=== PATIENT | female | born 1940 | race African-American/Black ===

== ENCOUNTER 2018-01-23 18:19 | Inpatient (IN) ==
[2018-01-23] MEDS ORDERED: SODIUM CHLORIDE 0.9% 500 ML IV STA (18:27)
[2018-01-23] MEDS ORDERED: CLINDAMYCIN INJ 600 MG in PREMIX 1 EACH IV STA (18:27)
[2018-01-23] MEDS ORDERED: methylPREDNISolone SOD SUC 125 MG/2 ML VIAL IV STA (18:27)
[2018-01-23] MEDS ORDERED: ONDANSETRON 4 MG/2 ML VIAL IV STA (18:27)
[2018-01-23] MEDS ORDERED: PANTOPRAZOLE 40 MG VIAL IV STA (18:27)
[2018-01-23] MEDS ORDERED: SODIUM BICARBONATE 50 MEQ/50 ML VIAL IV STA ×2 (18:35→18:42)
[2018-01-23 18:41] LABS: ABG Base Excess -11.8 MMOL/L (-2.5-2.5); ABG HCO3 19.1 MMOL/L (20-26); ABG Oxygen Saturation 97.5 % (95-100); ABG PO2 145.9 MM HG (80-95); ABG TCO2 21.2 MMOL/L (23-27)
[2018-01-23 18:42] LABS: ABG PCO2 69.9 MM HG (35-48); ABG PH 7.054 (7.35-7.45)
[2018-01-23 18:46] LABS: Basophils % 0.4 % (0.0-0.8); Eosinophils # 0.1 10*3/uL (0.0-0.87); Eosinophils % 1.3 % (0.00-10.9); Hematocrit 37.6 VOL% (35.7-47.0); Hemoglobin 11.2 GM/DL (12.0-16.0); Immature Granulocytes Absolute 0.08 #; Lymphocytes # 4.8 10*3/uL (1.4-4.0); Lymphocytes % 62.3 % (21.3-54.2); Mean Corpuscular HGB Conc 29.8 GM/DL (32-36); Mean Corpuscular Hemoglobin 30 PG (27-34); Mean Corpuscular Volume 100.8 FL (87-102); Mean Platelet Volume 11.5 FL (9.6-12.0); Monocytes # 0.5 10*3/uL (0.11-0.8); Monocytes % 5.8 % (1.7-12.7); NRBC # 0.02 10*3/uL; Neutrophils # 2.3 10*3/uL (1.4-7.4); Neutrophils % 29.2 % (38.7-73.9); Platelet Count 80 T/CUMM (130-400); Red Blood Count 3.73 MC/CUMM (3.8-5.5); Red Cell Distribution Width 13.9 % (9.3-17.3); White Blood Count 7.7 T/CUMM (4-12)
[2018-01-23 18:47] LABS: INR 1.1; PT Patient Result 11.5 SECS
[2018-01-23 18:59] LABS: Alanine Aminotransferase 69 U/L (13-56); Albumin 3.2 G/DL (3.4-5.0); Alkaline Phosphatase 89 U/L (45-117); Aspartate Amino Transferase 91 U/L (0-37); Blood Urea Nitrogen 27 MG/DL (7-18); Calcium 9.3 MG/DL (8.5-10.1); Glucose 221 MG/DL (74-106); Osmolality,Calculated 292.3 MOS/KG (273-304); Potassium 4.7 MMOL/L (3.5-5.1); Sodium 141 MMOL/L (136-145); Total Protein 7.7 G/DL (6.4-8.3)
[2018-01-23 19:00] LABS: Troponin I 0.243 NG/ML (0.00-0.045)
[2018-01-23 19:09] LABS: Apearance,Urine CLEAR (Clear); Bilirubin,Urine Negative (Negative); Blood, Urine Negative (Negative); Glucose,Urine (UA) Negative (Negative); Hyaline Casts,Urine 1 /LPF (0-3); Ketones,Urine Negative (Negative); Mucus,Urine Occasional /LPF (Occasional); Nitrite,Urine Negative (Negative); Protein,Urine Negative; RBC,Urine 3 /HPF (0-4); Urine Color Yellow (Yellow); Urine Specific Gravity 1.014 (1.001-1.035); Urine Urobilinogen < 2.0 EU/DL (0.2-1.0); WBC,Urine 1 /HPF (0-6)
[2018-01-23] MEDS ORDERED: PIPERACILLIN/TAZOBACTAM 3,375 MG in SODIUM CHLORIDE 0.9% 100 ML IV STA (19:38)
[2018-01-23 19:47] LABS: Platelet Estimate Decreased
[2018-01-23 19:48] LABS: Anisocytosis Slight
[2018-01-23 20:14] LABS: Lactic Acid 8.1 MMOL/L (0.4-2.0)
[2018-01-23] MEDS ORDERED: ONDANSETRON 4 MG/2 ML VIAL IV PRN (21:14)
[2018-01-23] MEDS ORDERED: ACETAMINOPHEN 325 MG TABLET PO PRN (21:14)
[2018-01-23] MEDS ORDERED: ENOXAPARIN 40 MG/0.4 ML SYRINGE SUBCUT SCH (21:14)
[2018-01-23] MEDS ORDERED: MORPHINE 4 MG/1 ML VIAL IV PRN (21:14)
[2018-01-23] MEDS: SODIUM CHLORIDE 0.9% 1,000 ML IV SCH (21:45)
[2018-01-23] MEDS: DOCUSATE SODIUM 100 MG CAPSULE PO SCH (22:07)
[2018-01-23] MEDS ORDERED: PHENYTOIN INJ 1,000 MG in SODIUM CHLORIDE 0.9% 100 ML IV ONE (22:30)
[2018-01-23] MEDS ORDERED: NOREPINEPHRINE 4 MG/4 ML VIAL IV ONE (22:33)
[2018-01-23] MEDS ORDERED: NOREPINEPHRINE 8 MG in SODIUM CHLORIDE 0.9% 242 ML IV PRN (22:40)
[2018-01-23] MEDS ORDERED: fentaNYL INJ 1,250 MCG in SODIUM CHLORIDE 0.9% 225 ML IV PRN (22:55)
[2018-01-23 23:12] LABS: CKMB % 5.7 %
[2018-01-23] MEDS ORDERED: SODIUM CHLORIDE 0.9% 1,000 ML IV ONE (23:15)
[2018-01-23 23:22] LABS: Troponin I 3.66 NG/ML (0.00-0.045)
[2018-01-23] MEDS: CISATRACURIUM 200 MG in SODIUM CHLORIDE 0.9% 180 ML IV SCH (23:25)
[2018-01-23] MEDS: PROPOFOL 1,000 MG/100 ML BOTTLE IV SCH (23:25)
[2018-01-24] MEDS ORDERED: SODIUM CHLORIDE 0.9% 1,000 ML IV ONE ×3 (00:15→02:15)
[2018-01-24 02:46] LABS: INR 1.9; PT Patient Result 19.2 SECS
[2018-01-24 02:49] LABS: Calcium 7.5 MG/DL (8.5-10.1); Partial Thromboplastin Time 65.7 SECS (0-40); Potassium 3.6 MMOL/L (3.5-5.1)
[2018-01-24 02:53] LABS: CKMB % 6.3 %
[2018-01-24] MEDS ORDERED: NOREPINEPHRINE 4 MG/4 ML VIAL IV ONE (03:05)
[2018-01-24 03:12] LABS: Lactic Acid 14.4 MMOL/L (0.4-2.0)
[2018-01-24] MEDS: NOREPINEPHRINE 16 MG in SODIUM CHLORIDE 0.9% 234 ML IV PRN ×3 (03:12→17:08)
[2018-01-24 03:14] LABS: Troponin I 5.58 NG/ML (0.00-0.045)
[2018-01-24] MEDS: INSULIN REGULAR 100 UNIT/ML IV SCH ×5 (03:46→20:52)
[2018-01-24 05:14] LABS: Basophils % 0.1 % (0.0-0.8); Hematocrit 21.2 VOL% (35.7-47.0); Immature Granulocytes % 0.4 %; Immature Granulocytes Absolute 0.06 #; Lymphocytes # 0.5 10*3/uL (1.4-4.0); Lymphocytes % 3.1 % (21.3-54.2); Mean Corpuscular HGB Conc 28.8 GM/DL (32-36); Mean Corpuscular Hemoglobin 30 PG (27-34); Mean Corpuscular Volume 104.4 FL (87-102); Mean Platelet Volume 10.9 FL (9.6-12.0); Monocytes # 0.4 10*3/uL (0.11-0.8); Monocytes % 2.7 % (1.7-12.7); Neutrophils # 13.8 10*3/uL (1.4-7.4); Neutrophils % 93.7 % (38.7-73.9); Platelet Count 73 T/CUMM (130-400); Red Blood Count 2.03 MC/CUMM (3.8-5.5); Red Cell Distribution Width 13.8 % (9.3-17.3); White Blood Count 14.7 T/CUMM (4-12)
[2018-01-24 05:23] LABS: ABG Base Excess -21.9 MMOL/L (-2.5-2.5); ABG PCO2 24.7 MM HG (35-48); ABG TCO2 6.9 MMOL/L (23-27)
[2018-01-24] MEDS: PIPERACILLIN/TAZOBACTAM 3,375 MG in SODIUM CHLORIDE 0.9% 100 ML IV SCH ×3 (05:25→20:25)
[2018-01-24 05:26] LABS: ABG PH 7.053 (7.35-7.45)
[2018-01-24 05:28] LABS: Hemoglobin 6.1 GM/DL (12.0-16.0)
[2018-01-24 05:34] LABS: Acanthocytes Few; Band Neutrophils 7 % (0-10); Hypochromasia 1+; Lymphocytes 1 % (20-55); Platelet Estimate Decreased; Segmented Neutrophils 90 % (50-85); Total Cells Counted 100
[2018-01-24] MEDS ORDERED: SODIUM BICARBONATE 50 MEQ/50 ML SYRINGE IV ONE ×3 (05:34→05:35)
[2018-01-24 05:35] LABS: Ovalocytes Slight
[2018-01-24 05:42] LABS: Albumin 1.9 G/DL (3.4-5.0); Bilirubin,Total 0.5 MG/DL (0.2-1.0); Calcium 7.5 MG/DL (8.5-10.1); Osmolality,Calculated 306.1 MOS/KG (273-304); Potassium 3.6 MMOL/L (3.5-5.1); Total Protein 4.5 G/DL (6.4-8.3)
[2018-01-24] MEDS: SODIUM CHLORIDE 0.9% 1,000 ML IV SCH (05:47)
[2018-01-24] MEDS: SODIUM CHLORIDE 23.4% CONC INJ 38.5 MEQ, SODIUM BICARB INJ 100 MEQ in STERILE WATER INJ... IV SCH ×2 (05:55→17:09)
[2018-01-24] MEDS: PHENYTOIN 100 MG/2 ML VIAL IV SCH ×3 (06:15→22:51)
[2018-01-24] MEDS ORDERED: POTASSIUM CHLORIDE RIDER 100 ML IV ONE (06:41)
[2018-01-24] MEDS ORDERED: POTASSIUM CHLORIDE RIDER 20 MEQ in PREMIX 1 EACH IV ONE (06:43)
[2018-01-24 08:26] LABS: ABG Base Excess -21.7 MMOL/L (-2.5-2.5); ABG HCO3 8.5 MMOL/L (20-26); ABG Oxygen Saturation 99.4 % (95-100); ABG PCO2 21.6 MM HG (35-48); ABG TCO2 6.6 MMOL/L (23-27)
[2018-01-24 08:30] LABS: Basophils % 0.1 % (0.0-0.8); Hematocrit 25.6 VOL% (35.7-47.0); Hemoglobin 7.5 GM/DL (12.0-16.0); Immature Granulocytes % 0.6 %; Immature Granulocytes Absolute 0.09 #; Lymphocytes # 0.5 10*3/uL (1.4-4.0); Lymphocytes % 3.3 % (21.3-54.2); Mean Corpuscular HGB Conc 29.3 GM/DL (32-36); Mean Corpuscular Hemoglobin 29 PG (27-34); Mean Corpuscular Volume 100.4 FL (87-102); Mean Platelet Volume 11.1 FL (9.6-12.0); Monocytes # 0.5 10*3/uL (0.11-0.8); Monocytes % 3.3 % (1.7-12.7); Neutrophils # 14.7 10*3/uL (1.4-7.4); Neutrophils % 92.7 % (38.7-73.9); Platelet Count 69 T/CUMM (130-400); Red Blood Count 2.55 MC/CUMM (3.8-5.5); Red Cell Distribution Width 14.8 % (9.3-17.3); White Blood Count 15.9 T/CUMM (4-12)
[2018-01-24 08:52] LABS: Band Neutrophils 9 % (0-10); Burr Cells Slight; Hypochromasia 1+; Lymphocytes 3 % (20-55); Ovalocytes Slight; Platelet Estimate Decreased; Segmented Neutrophils 86 % (50-85); Total Cells Counted 100
[2018-01-24 08:53] LABS: PT Patient Result 20.9 SECS
[2018-01-24 08:55] LABS: Partial Thromboplastin Time 66.2 SECS (0-40)
[2018-01-24] MEDS ORDERED: CHLORTHALIDONE 25 MG TABLET PO SCH (09:00)
[2018-01-24] MEDS ORDERED: IRBESARTAN 150 MG TABLET PO SCH (09:00)
[2018-01-24] MEDS ORDERED: amLODIPine 5 MG TABLET PO SCH (09:00)
[2018-01-24] MEDS ORDERED: NON-FORMULARY MEDICATION (Omeprazole [Omeprazole] 20 MG) PO SCH (09:00)
[2018-01-24 09:01] LABS: CKMB % 6.1 %
[2018-01-24 09:04] LABS: Troponin I 6.18 NG/ML (0.00-0.045)
[2018-01-24 09:07] LABS: Calcium 7.3 MG/DL (8.5-10.1); Osmolality,Calculated 309.7 MOS/KG (273-304); Potassium 4.8 MMOL/L (3.5-5.1)
[2018-01-24 09:08] LABS: Lactic Acid 19.5 MMOL/L (0.4-2.0)
[2018-01-24] MEDS ORDERED: INSULIN REGULAR 100 UNIT/ML IV SCH (12:00)
[2018-01-24 12:11] LABS: Basophils % 0.2 % (0.0-0.8); Hematocrit 39.1 VOL% (35.7-47.0); Immature Granulocytes % 0.4 %; Immature Granulocytes Absolute 0.08 #; Lymphocytes # 0.6 10*3/uL (1.4-4.0); Lymphocytes % 3.3 % (21.3-54.2); Mean Corpuscular HGB Conc 30.2 GM/DL (32-36); Mean Corpuscular Hemoglobin 30 PG (27-34); Mean Corpuscular Volume 97.8 FL (87-102); Mean Platelet Volume 11.3 FL (9.6-12.0); Monocytes # 0.6 10*3/uL (0.11-0.8); Monocytes % 3.1 % (1.7-12.7); Neutrophils # 17.6 10*3/uL (1.4-7.4); Platelet Count 65 T/CUMM (130-400); Red Cell Distribution Width 14.6 % (9.3-17.3); White Blood Count 18.9 T/CUMM (4-12)
[2018-01-24] MEDS: PHENYLEPHRINE DRIP 40 MG/250 ML PREMIX IV PRN (12:12)
[2018-01-24 12:14] LABS: Hemoglobin 11.8 GM/DL (12.0-16.0)
[2018-01-24] MEDS: DOCUSATE SODIUM 100 MG CAPSULE PO SCH ×2 (12:45→21:56)
[2018-01-24] MEDS: ATORVASTATIN 20 MG TABLET PO SCH (12:45)
[2018-01-24] MEDS: PANTOPRAZOLE 40 MG VIAL IV SCH (12:45)
[2018-01-24 13:45] LABS: Band Neutrophils 16 % (0-10); Lymphocytes 5 % (20-55); Macrocytosis Slight; Platelet Estimate Decreased; Segmented Neutrophils 76 % (50-85); Total Cells Counted 100
[2018-01-24 14:29] LABS: CKMB % 5.9 %
[2018-01-24 14:34] LABS: Calcium 7.6 MG/DL (8.5-10.1); Osmolality,Calculated 309.9 MOS/KG (273-304); Potassium 4.7 MMOL/L (3.5-5.1)
[2018-01-24 14:48] LABS: Lactic Acid 18.9 MMOL/L (0.4-2.0); Troponin I 6.04 NG/ML (0.00-0.045)
[2018-01-24] MEDS: POTASSIUM CHLORIDE 10 MEQ TABLET PO SCH (14:50)
[2018-01-24 14:55] LABS: INR 1.9; PT Patient Result 19.5 SECS
[2018-01-24 14:56] LABS: Partial Thromboplastin Time 46.4 SECS (0-40)
[2018-01-24] MEDS: MINERAL OIL/PETROLATUM OPH OINT 3.5 GM TUBE BOTH EYES SCH ×2 (15:04→21:56)
[2018-01-24] MEDS: ASPIRIN EC 81 MG TABLET PO SCH (15:04)
[2018-01-24 20:12] LABS: Basophils % 0.2 % (0.0-0.8); Hematocrit 38.4 VOL% (35.7-47.0); Immature Granulocytes % 0.4 %; Lymphocytes # 1.3 10*3/uL (1.4-4.0); Lymphocytes % 5.8 % (21.3-54.2); Mean Corpuscular HGB Conc 31.3 GM/DL (32-36); Mean Corpuscular Hemoglobin 30 PG (27-34); Mean Corpuscular Volume 95.3 FL (87-102); Mean Platelet Volume 11.8 FL (9.6-12.0); Monocytes # 0.5 10*3/uL (0.11-0.8); Monocytes % 2.4 % (1.7-12.7); Neutrophils # 20.5 10*3/uL (1.4-7.4); Neutrophils % 91.2 % (38.7-73.9); Platelet Count 48 T/CUMM (130-400); Red Blood Count 4.03 MC/CUMM (3.8-5.5); Red Cell Distribution Width 15.3 % (9.3-17.3); White Blood Count 22.5 T/CUMM (4-12)
[2018-01-24 20:29] LABS: PT Patient Result 20.2 SECS; Partial Thromboplastin Time 46.2 SECS (0-40)
[2018-01-24 20:32] LABS: Calcium 7.3 MG/DL (8.5-10.1); Osmolality,Calculated 307.1 MOS/KG (273-304); Potassium 4.7 MMOL/L (3.5-5.1)
[2018-01-24 20:38] LABS: CKMB % 6.2 %
[2018-01-24 20:39] LABS: Band Neutrophils 13 % (0-10); Lymphocytes 11 % (20-55); Segmented Neutrophils 72 % (50-85); Total Cells Counted 100
[2018-01-24 20:40] LABS: Platelet Estimate Decreased; Troponin I 4.72 NG/ML (0.00-0.045)
[2018-01-24 20:41] LABS: Macrocytosis Slight
[2018-01-25] MEDS: CISATRACURIUM 200 MG in SODIUM CHLORIDE 0.9% 180 ML IV SCH ×4 (00:09→22:13)
[2018-01-25] MEDS: NOREPINEPHRINE 16 MG in SODIUM CHLORIDE 0.9% 234 ML IV PRN ×3 (00:10→19:10)
[2018-01-25] MEDS: PROPOFOL 1,000 MG/100 ML BOTTLE IV SCH (00:11)
[2018-01-25] MEDS: INSULIN REGULAR 100 UNIT/ML IV SCH ×6 (01:26→20:46)
[2018-01-25] MEDS: PHENYLEPHRINE DRIP 40 MG/250 ML PREMIX IV PRN ×2 (02:20→20:22)
[2018-01-25 02:21] LABS: Basophils # 0.1 10*3/uL (0.0-0.2); Basophils % 0.2 % (0.0-0.8); Hematocrit 35.5 VOL% (35.7-47.0); Hemoglobin 11.5 GM/DL (12.0-16.0); Immature Granulocytes % 0.6 %; Immature Granulocytes Absolute 0.15 #; Lymphocytes # 2.2 10*3/uL (1.4-4.0); Lymphocytes % 9.1 % (21.3-54.2); Mean Corpuscular HGB Conc 32.4 GM/DL (32-36); Mean Corpuscular Hemoglobin 30 PG (27-34); Mean Corpuscular Volume 92.4 FL (87-102); Mean Platelet Volume 12.6 FL (9.6-12.0); Monocytes # 0.6 10*3/uL (0.11-0.8); Monocytes % 2.7 % (1.7-12.7); Neutrophils # 20.9 10*3/uL (1.4-7.4); Neutrophils % 87.4 % (38.7-73.9); Platelet Count 47 T/CUMM (130-400); Red Blood Count 3.84 MC/CUMM (3.8-5.5); Red Cell Distribution Width 15.4 % (9.3-17.3)
[2018-01-25 02:28] LABS: INR 2.1
[2018-01-25 02:30] LABS: PT Patient Result 21.4 SECS; Partial Thromboplastin Time 45.6 SECS (0-40)
[2018-01-25 02:38] LABS: Calcium 7.2 MG/DL (8.5-10.1); Osmolality,Calculated 309.1 MOS/KG (273-304)
[2018-01-25 02:43] LABS: Lactic Acid 14.8 MMOL/L (0.4-2.0)
[2018-01-25 04:00] LABS: Band Neutrophils 4 % (0-10); Lymphocytes 6 % (20-55); Polychromasia Few; Segmented Neutrophils 86 % (50-85); Total Cells Counted 100
[2018-01-25 04:01] LABS: Platelet Estimate Decreased
[2018-01-25] MEDS: SODIUM CHLORIDE 23.4% CONC INJ 38.5 MEQ, SODIUM BICARB INJ 100 MEQ in STERILE WATER INJ... IV SCH ×2 (04:20→17:55)
[2018-01-25] MEDS: PIPERACILLIN/TAZOBACTAM 3,375 MG in SODIUM CHLORIDE 0.9% 100 ML IV SCH ×2 (04:20→17:02)
[2018-01-25 04:59] LABS: ABG Base Excess -12.7 MMOL/L (-2.5-2.5); ABG HCO3 14.6 MMOL/L (20-26); ABG PCO2 22.8 MM HG (35-48); ABG PH 7.325 (7.35-7.45); ABG TCO2 10.7 MMOL/L (23-27)
[2018-01-25 05:24] LABS: Bilirubin,Total 0.9 MG/DL (0.2-1.0); Calcium 7.1 MG/DL (8.5-10.1); Osmolality,Calculated 307.3 MOS/KG (273-304); Total Protein 4.8 G/DL (6.4-8.3)
[2018-01-25] MEDS: PHENYTOIN 100 MG/2 ML VIAL IV SCH ×3 (06:30→21:12)
[2018-01-25 09:17] LABS: Basophils # 0.1 10*3/uL (0.0-0.2); Basophils % 0.2 % (0.0-0.8); Hematocrit 33.4 VOL% (35.7-47.0); Hemoglobin 11.2 GM/DL (12.0-16.0); Immature Granulocytes % 0.9 %; Immature Granulocytes Absolute 0.22 #; Lymphocytes # 2.1 10*3/uL (1.4-4.0); Lymphocytes % 8.3 % (21.3-54.2); Mean Corpuscular HGB Conc 33.5 GM/DL (32-36); Mean Corpuscular Hemoglobin 30 PG (27-34); Mean Corpuscular Volume 89.1 FL (87-102); Monocytes # 0.8 10*3/uL (0.11-0.8); Neutrophils # 22.2 10*3/uL (1.4-7.4); Neutrophils % 87.6 % (38.7-73.9); Red Blood Count 3.75 MC/CUMM (3.8-5.5); Red Cell Distribution Width 15.6 % (9.3-17.3); White Blood Count 25.3 T/CUMM (4-12)
[2018-01-25 09:18] LABS: Platelet Count 47 T/CUMM (130-400)
[2018-01-25 09:31] LABS: INR 2.1; PT Patient Result 21.9 SECS; Partial Thromboplastin Time 45.4 SECS (0-40)
[2018-01-25 09:36] LABS: Band Neutrophils 9 % (0-10); Hypochromasia 1+; Lymphocytes 8 % (20-55); Platelet Estimate Decreased; Segmented Neutrophils 82 % (50-85); Total Cells Counted 100
[2018-01-25 09:55] LABS: Osmolality,Calculated 304.6 MOS/KG (273-304); Potassium 5.2 MMOL/L (3.5-5.1)
[2018-01-25 10:00] LABS: Lactic Acid 12.1 MMOL/L (0.4-2.0)
[2018-01-25] MEDS: PANTOPRAZOLE 40 MG VIAL IV SCH (11:04)
[2018-01-25] MEDS: DOCUSATE SODIUM 100 MG CAPSULE PO SCH (11:05)
[2018-01-25] MEDS: ASPIRIN EC 81 MG TABLET PO SCH ×2 (11:05→11:21)
[2018-01-25] MEDS: POTASSIUM CHLORIDE 10 MEQ TABLET PO SCH ×2 (11:05→11:23)
[2018-01-25] MEDS: ATORVASTATIN 20 MG TABLET PO SCH (11:23)
[2018-01-25] MEDS: DOCUSATE SODIUM 100 MG/10 ML UDCUP PO SCH ×2 (11:26→20:56)
[2018-01-25] MEDS: ASPIRIN CHEW 81 MG TABLET PO SCH (11:26)
[2018-01-25] MEDS: MINERAL OIL/PETROLATUM OPH OINT 3.5 GM TUBE BOTH EYES SCH ×3 (13:02→20:56)
[2018-01-25 14:53] LABS: Basophils # 0.1 10*3/uL (0.0-0.2); Basophils % 0.2 % (0.0-0.8); Hemoglobin 11.4 GM/DL (12.0-16.0); Immature Granulocytes % 1.9 %; Lymphocytes # 1.3 10*3/uL (1.4-4.0); Lymphocytes % 5.2 % (21.3-54.2); Mean Corpuscular HGB Conc 33.5 GM/DL (32-36); Mean Corpuscular Hemoglobin 30 PG (27-34); Mean Platelet Volume 12.8 FL (9.6-12.0); Monocytes % 3.7 % (1.7-12.7); NRBC # 0.02 10*3/uL; Neutrophils # 22.9 10*3/uL (1.4-7.4); Red Blood Count 3.82 MC/CUMM (3.8-5.5); Red Cell Distribution Width 15.9 % (9.3-17.3); White Blood Count 25.8 T/CUMM (4-12)
[2018-01-25 14:54] LABS: Platelet Count 48 T/CUMM (130-400)
[2018-01-25 15:00] LABS: INR 2.1
[2018-01-25 15:07] LABS: Calcium 6.9 MG/DL (8.5-10.1); Osmolality,Calculated 299.8 MOS/KG (273-304); Partial Thromboplastin Time 45.3 SECS (0-40); Potassium 5.8 MMOL/L (3.5-5.1)
[2018-01-25 15:13] LABS: Band Neutrophils 6 % (0-10); Hypochromasia 1+; Lactic Acid 11.7 MMOL/L (0.4-2.0); Lymphocytes 7 % (20-55); Platelet Estimate Decreased; Segmented Neutrophils 84 % (50-85); Total Cells Counted 100
[2018-01-25] MEDS ORDERED: SODIUM CHLORIDE 23.4% CONC INJ 38.5 MEQ, SODIUM BICARB INJ 100 MEQ in STERILE WATER INJ... IV SCH (15:42)
[2018-01-25] MEDS ORDERED: DEXTROSE 50% 25 GM/50 ML VIAL IV ONE (16:56)
[2018-01-25] MEDS: SODIUM BICARB INJ 150 MEQ in DEXTROSE 5% 850 ML IV SCH (17:04)
[2018-01-25] MEDS: DEXTROSE 50% 25 GM/50 ML VIAL IV PRN ×2 (17:09→20:56)
[2018-01-25 20:11] LABS: Basophils # 0.1 10*3/uL (0.0-0.2); Basophils % 0.2 % (0.0-0.8); Hematocrit 31.6 VOL% (35.7-47.0); Hemoglobin 10.1 GM/DL (12.0-16.0); Immature Granulocytes % 3.8 %; Immature Granulocytes Absolute 0.93 #; Lymphocytes # 1.2 10*3/uL (1.4-4.0); Lymphocytes % 4.8 % (21.3-54.2); Mean Corpuscular Hemoglobin 29 PG (27-34); Mean Corpuscular Volume 91.3 FL (87-102); Mean Platelet Volume 12.7 FL (9.6-12.0); Monocytes # 0.9 10*3/uL (0.11-0.8); Monocytes % 3.8 % (1.7-12.7); NRBC # 0.04 10*3/uL; Neutrophils # 21.1 10*3/uL (1.4-7.4); Neutrophils % 87.4 % (38.7-73.9); Red Blood Count 3.46 MC/CUMM (3.8-5.5); Red Cell Distribution Width 15.9 % (9.3-17.3); White Blood Count 24.2 T/CUMM (4-12)
[2018-01-25 20:13] LABS: Platelet Count 46 T/CUMM (130-400)
[2018-01-25 20:22] LABS: Lactic Acid 13.1 MMOL/L (0.4-2.0)
[2018-01-25 20:30] LABS: Calcium 6.5 MG/DL (8.5-10.1); Osmolality,Calculated 300.7 MOS/KG (273-304)
[2018-01-25 20:31] LABS: Potassium 6.1 MMOL/L (3.5-5.1)
[2018-01-25 20:36] LABS: INR 2.5
[2018-01-25 20:37] LABS: Partial Thromboplastin Time 57.4 SECS (0-40)
[2018-01-25] MEDS ORDERED: SODIUM BICARBONATE 50 MEQ/50 ML SYRINGE IV ONE (20:38)
[2018-01-25] MEDS ORDERED: CALCIUM GLUCONATE 1,000 MG in SODIUM CHLORIDE 0.9% 100 ML IV ONE (20:38)
[2018-01-25 22:47] LABS: Lymphocytes 2 % (20-55); Metamyelocytes 6 %; Nucleated Red Blood Cells 1 (0-5); Total Cells Counted 100
[2018-01-25 22:48] LABS: Band Neutrophils 20 % (0-10); Hypochromasia 2+; Platelet Estimate Decreased; Segmented Neutrophils 69 % (50-85)
[2018-01-26] MEDS: PROPOFOL 1,000 MG/100 ML BOTTLE IV SCH (01:29)
[2018-01-26 01:42] LABS: Basophils # 0.1 10*3/uL (0.0-0.2); Basophils % 0.3 % (0.0-0.8); Hemoglobin 10.1 GM/DL (12.0-16.0); Immature Granulocytes % 4.3 %; Lymphocytes # 0.9 10*3/uL (1.4-4.0); Lymphocytes % 4.1 % (21.3-54.2); Mean Corpuscular HGB Conc 33.7 GM/DL (32-36); Mean Corpuscular Hemoglobin 30 PG (27-34); Mean Corpuscular Volume 89.6 FL (87-102); Mean Platelet Volume 13.8 FL (9.6-12.0); Monocytes # 0.9 10*3/uL (0.11-0.8); Monocytes % 3.9 % (1.7-12.7); NRBC # 0.15 10*3/uL; Neutrophils # 20.2 10*3/uL (1.4-7.4); Neutrophils % 87.4 % (38.7-73.9); Platelet Count 47 T/CUMM (130-400); Red Blood Count 3.35 MC/CUMM (3.8-5.5); Red Cell Distribution Width 15.9 % (9.3-17.3); White Blood Count 23.1 T/CUMM (4-12)
[2018-01-26 02:06] LABS: Calcium 6.6 MG/DL (8.5-10.1); Lactic Acid 11.8 MMOL/L (0.4-2.0); Osmolality,Calculated 307.4 MOS/KG (273-304); Potassium 5.3 MMOL/L (3.5-5.1)
[2018-01-26 02:10] LABS: Band Neutrophils 30 % (0-10); Lymphocytes 2 % (20-55); Metamyelocytes 2 %; Segmented Neutrophils 65 % (50-85); Total Cells Counted 100
[2018-01-26 02:11] LABS: Anisocytosis Slight; INR 3.1; Macrocytosis Slight; Ovalocytes Few; Platelet Estimate Decreased; Polychromasia 1+
[2018-01-26 02:16] LABS: PT Patient Result 31.4 SECS
[2018-01-26] MEDS: INSULIN REGULAR 100 UNIT/ML IV SCH ×4 (03:14→12:59)
[2018-01-26 04:09] LABS: ABG Oxygen Saturation 96.6 % (95-100); ABG PH 7.433 (7.35-7.45); ABG PO2 99.7 MM HG (80-95); ABG TCO2 17.8 MMOL/L (23-27)
[2018-01-26] MEDS: NOREPINEPHRINE 16 MG in SODIUM CHLORIDE 0.9% 234 ML IV PRN ×2 (04:09→12:35)
[2018-01-26] MEDS: PHENYTOIN 100 MG/2 ML VIAL IV SCH ×2 (05:05→15:18)
[2018-01-26] MEDS: PIPERACILLIN/TAZOBACTAM 3,375 MG in SODIUM CHLORIDE 0.9% 100 ML IV SCH (05:05)
[2018-01-26] MEDS: SODIUM BICARB INJ 150 MEQ in DEXTROSE 5% 850 ML IV SCH (07:22)
[2018-01-26] MEDS: PHENYLEPHRINE DRIP 40 MG/250 ML PREMIX IV PRN ×2 (08:01→11:59)
[2018-01-26 08:30] LABS: Basophils # 0.1 10*3/uL (0.0-0.2); Basophils % 0.4 % (0.0-0.8); Hematocrit 30.3 VOL% (35.7-47.0); Immature Granulocytes % 0.9 %; Lymphocytes # 0.9 10*3/uL (1.4-4.0); Lymphocytes % 3.9 % (21.3-54.2); Mean Corpuscular Hemoglobin 30 PG (27-34); Mean Corpuscular Volume 90.4 FL (87-102); Mean Platelet Volume 13.5 FL (9.6-12.0); Monocytes # 0.8 10*3/uL (0.11-0.8); Monocytes % 3.5 % (1.7-12.7); NRBC # 0.63 10*3/uL; Neutrophils # 20.5 10*3/uL (1.4-7.4); Neutrophils % 91.3 % (38.7-73.9); Platelet Count 49 T/CUMM (130-400); Red Blood Count 3.35 MC/CUMM (3.8-5.5); White Blood Count 22.5 T/CUMM (4-12)
[2018-01-26 08:48] LABS: INR 4.4
[2018-01-26 08:49] LABS: Calcium 6.5 MG/DL (8.5-10.1); Osmolality,Calculated 304.6 MOS/KG (273-304); PT Patient Result 43.6 SECS; Partial Thromboplastin Time 72.1 SECS (0-40); Potassium 5.9 MMOL/L (3.5-5.1)
[2018-01-26 08:53] LABS: Lactic Acid 12.4 MMOL/L (0.4-2.0)
[2018-01-26] MEDS: POTASSIUM CHLORIDE 10 MEQ TABLET PO SCH (08:59)
[2018-01-26 09:08] VITALS: BP 103/37
[2018-01-26] MEDS: ASPIRIN CHEW 81 MG TABLET PO SCH (09:25)
[2018-01-26] MEDS: DOCUSATE SODIUM 100 MG/10 ML UDCUP PO SCH (09:25)
[2018-01-26] MEDS: MINERAL OIL/PETROLATUM OPH OINT 3.5 GM TUBE BOTH EYES SCH ×2 (09:25→15:18)
[2018-01-26] MEDS: PANTOPRAZOLE 40 MG VIAL IV SCH (09:25)
[2018-01-26] MEDS ORDERED: CALCIUM GLUCONATE 2,000 MG in SODIUM CHLORIDE 0.9% 100 ML IV ONE (09:32)
[2018-01-26] MEDS ORDERED: SODIUM BICARBONATE 50 MEQ/50 ML SYRINGE IV ONE (09:32)
[2018-01-26 10:24] LABS: Band Neutrophils 8 % (0-10); Lymphocytes 6 % (20-55); Nucleated Red Blood Cells 4 (0-5); Segmented Neutrophils 82 % (50-85); Total Cells Counted 100
[2018-01-26 10:25] LABS: Hypochromasia 1+; Microcytosis 1+; Ovalocytes Slight; Target Cells Slight
[2018-01-26 10:26] LABS: Platelet Estimate Decreased
[2018-01-26] MEDS ORDERED: DOBUTamine 500 MG/250 ML PREMIX IV PRN (11:24)
[2018-01-26 11:36] LABS: Hepatitis A Ab IgM Quant 2.13 Index; Hepatitis A Ab IgM Result Positive (Negative); Hepatitis B Core IgM Quant 0.08 Index; Hepatitis B Core IgM Result Negative (Negative); Hepatitis B Surface Ag Quant 0.14 Index; Hepatitis B Surface Ag Result Negative (Negative); Hepatitis C Virus Ab Quant 0.12 Index; Hepatitis C Virus Ab Result Negative (Negative)
[2018-01-26] MEDS: DEXTROSE 50% 25 GM/50 ML VIAL IV PRN (12:58)
== END 2018-01-26 15:09 | disposition expired ==
LOC: N.ED 18:19 → N.EDINP 20:18 → N.CC 21:05
PROVIDERS: ADMIT Family Medicine; ATTEND Family Medicine